=== PATIENT | male | born 1960 | race Two or more races ===

== ENCOUNTER 2018-07-16 12:06 | Emergency (ER) | payer SELFPAY ==
[~2018-07-16] VITALS: Ht 175.3 cm; Wt 102.1 kg
[2018-07-16] MEDS ORDERED: UNOBMED (12:12)
[2018-07-16 12:31] VITALS: BP 148/82
[2018-07-16] MEDS ORDERED: Meclizine 25mg tab ORAL STA (12:49)
[2018-07-16 13:33] LABS: ANION GAP 10 mmol/L (5-15); APPEARANCE,URINE CLEAR; BILIRUBIN, URINE NEGATIVE (NEGATIVE); BLOOD UREA NITROGEN 14 mg/dL (7-18); CALCIUM 9.2 MG/DL (8.5-10.1); CARBON DIOXIDE 27 MMOL/L (21-32); CHLORIDE 101 MMOL/L (98-107); COLOR,URINE BROWN; CREATININE 0.7 MG/DL (0.55-1.30); GLUCOSE, URINE (UA) NEGATIVE (NEGATIVE); KETONES,URINE NEGATIVE (NEGATIVE); LEUKOCYTE ESTERASE ,URINE 1+ (NEGATIVE); NITRITE,URINE NEGATIVE (NEGATIVE); PH,URINE 6 (4.5-8.0); POTASSIUM 4.4 MMOL/L (3.5-5.1); PROTEIN,URINE NEGATIVE (NEGATIVE); SODIUM 137 MMOL/L (136-145); UROBILINOGEN,URINE 4 MG/DL (0.0-1.0)
[2018-07-16 13:36] LABS: BASOPHILS % (AUTO) 0.9 % (0.0-2.0); EOSINOPHILS % (AUTO) 2.5 % (0.0-3.0); HEMATOCRIT 45.7 % (42.0-52.0); HEMOGLOBIN 15.7 G/DL (14.2-18.0); LYMPHOCYTES % (AUTO) 24.9 % (20.0-45.0); MEAN CORPUSCULAR VOLUME 86 FL (80-99); MONOCYTES % (AUTO) 7.5 % (1.0-10.0); NEUTROPHILS % (AUTO) 64.2 % (45.0-75.0); PLATELET COUNT 196 K/UL (150-450); RED BLOOD COUNT 5.34 M/UL (4.70-6.10); RED CELL DISTRIBUTION WIDTH 11.2 % (11.6-14.8); WHITE BLOOD COUNT 8.6 K/UL (4.8-10.8)
[2018-07-16 13:44] LABS: ALANINE AMINOTRANSFERASE 31 U/L (12-78); ALBUMIN 3.7 G/DL (3.4-5.0); ALBUMIN/GLOBULIN RATIO 0.8 (1.0-2.7); ALKALINE PHOSPHATASE 101 U/L (46-116); ASPARTATE AMINO TRANSFERASE 22 U/L (15-37); CREATINE KINASE 109 U/L (26-308)
--- NOTE | 2018-07-16 14:18 | Diagnostic Imaging Report ---
Indication: Cough Technique: One view of the chest Comparison: none Findings: The heart is borderline enlarged. The lungs and pleural spaces are clear. Impression: Cardiomegaly. No acute process
[2018-07-16 14:36] VITALS: BP_SYST 125; BP_SYST 139; BP_SYST 144; BP_DIAS 76; BP_DIAS 87
--- NOTE | 2018-07-16 14:41 | Emergency Room Report ---
History of Present Illness General Chief Complaint: Dizziness Source: Patient Present Illness HPI Patient presents with 2 days of vertigo mainly when he sits up. It began after coughing fit. He felt pressure in his ears at that time and had a change in his hearing. Seems more on the left-hand side. He denies any fevers or chills. He feels the world spinning and gets nauseated. He stopped smoking at that time. The cough is better. He denies any chest pain or palpitations. The episodes last a few minutes and then get better. He does not feel dehydrated. He doesn't feel like is is about to pass out. There is no headache. The patient also complains about left calf pain that happens when he walks 1 block. This has been happening for at least a month. He's not talked about this with his doctor. 5 months ago he was waking up gasping for air. This hasn't happened recently. No fevers, chills, sore throat, abdominal pain, dysuria, change in bowels, joint pain. No recent head trauma. Allergies: Coded Allergies: No Known Allergies (Unverified , 07/16/18) Patient History Past Medical History: see triage record Social History: Reports: smoking Social History Narrative Reviewed Nursing Documentation: PMH: Agreed; PSxH: Agreed Nursing Documentation-PMH Past Medical History: No History, Except For Hx Hypertension: Yes Review of Systems All Other Systems: negative except mentioned in HPI Physical Exam Vital Signs Date Time Temp Pulse Resp B/P (MAP) Pulse Ox O2 Delivery O2 Flow Rate FiO2 07/16/18 12:09 98.2 82 18 132/86 95 Room Air 07/16/18 12:31 96 Sp02 EP Interpretation: reviewed, normal General Appearance: well appearing, no apparent distress, GCS 15 Head: normocephalic, atraumatic Eyes: bilateral eye normal inspection, bilateral eye PERRL, bilateral eye EOMI ENT: normal pharynx, TMs + canals normal, moist mucus membranes Neck: supple Respiratory: lungs clear, normal breath sounds Cardiovascular #1: regular rate, rhythm, no edema Cardiovascular #2: 2+ radial (R), 2+ dorsalis pedis (L) Gastrointestinal: normal inspection, normal bowel sounds, non tender, no mass, non-distended Musculoskeletal: back normal, gait/station normal, normal range of motion, no calf tenderness, Ida's Sign negative Neurologic: alert, oriented x3, edge bander hand III-XII nml as tested, motor strength/tone normal, DTRs symmetric, sensory intact, cerebellar normal, normal gait, speech normal Psychiatric: mood/affect normal Skin: normal inspection, warm/dry Medical Decision Making Diagnostic Impression: Primary Impression: Vertigo Additional Impression: Claudication ER Course Patient presents with dizziness that started 2 days ago after coughing fit with change in his hearing. Differential includes labyrinthitis, otitis media, orthostatic hypotension amongst others. His neurologic exam is normal at this time and CT of the head is not indicated. Evaluation with EKG, chest x-ray and labs. Patient will be treated with Zofran and Antivert. In addition he has calf pain that is re-created by walking 1 block. Differential includes claudication, calf strain, electrolyte imbalance amongst others. Not orthostatic EKG without injury. Chest x-ray normal. Labs unremarkable. Improved with treatment. Discussed findings with patient. Discussed the need for evaluation of his circulation of his left leg. Also discussed smoking cessation. In addition discussed treatment plan. Patient improved and stable for outpatient observation and treatment. Laboratory Tests Test 07/16/18 13:00 07/16/18 13:05 White Blood Count 8.6 K/UL (4.8-10.8) Red Blood Count 5.34 M/UL (4.70-6.10) Hemoglobin 15.7 G/DL (14.2-18.0) Hematocrit 45.7 % (42.0-52.0) Mean Corpuscular Volume 86 FL (80-99) Mean Corpuscular Hemoglobin 29.4 PG (27.0-31.0) Mean Corpuscular Hemoglobin Concent 34.4 G/DL (32.0-36.0) Red Cell Distribution Width 11.2 % (11.6-14.8) L Platelet Count 196 K/UL (150-450) Mean Platelet Volume 7.2 FL (6.5-10.1) Neutrophils (%) (Auto) 64.2 % (45.0-75.0) Lymphocytes (%) (Auto) 24.9 % (20.0-45.0) Monocytes (%) (Auto) 7.5 % (1.0-10.0) Eosinophils (%) (Auto) 2.5 % (0.0-3.0) Basophils (%) (Auto) 0.9 % (0.0-2.0) Erythrocyte Sedimentation Rate Pending Prothrombin Time 10.2 SEC (9.30-11.50) Prothrombin Time INR 1.0 (0.9-1.1) PTT 29 SEC (23-33) Urine Color Brown Urine Appearance Clear Urine pH 6 (4.5-8.0) Urine Specific [place] 1.020 (1.005-1.035) Urine Protein Negative (NEGATIVE) Urine Glucose (UA) Negative (NEGATIVE) Urine Ketones Negative (NEGATIVE) Urine Blood 1+ (NEGATIVE) H Urine Nitrite Negative (NEGATIVE) Urine Bilirubin Negative (NEGATIVE) Urine Urobilinogen 4 MG/DL (0.0-1.0) H Urine Leukocyte Esterase 1+ (NEGATIVE) H Urine RBC 5-10 /HPF (0 - 0) H Urine WBC 0-2 /HPF (0 - 0) Urine Squamous Epithelial Cells Occasional /LPF Urine Bacteria Few /HPF (NONE) Urine Mucus Moderate /LPF (NONE/OCC) H Sodium Level 137 MMOL/L (136-145) Potassium Level 4.4 MMOL/L (3.5-5.1) Chloride Level 101 MMOL/L (98-107) Carbon Dioxide Level 27 MMOL/L (21-32) Anion Gap 10 mmol/L (5-15) Blood Urea Nitrogen 14 mg/dL (7-18) Creatinine 0.7 MG/DL (0.55-1.30) Estimate Glomerular Filtration Rate > 60 mL/min (>60) Glucose Level 98 MG/DL (74-106) Calcium Level 9.2 MG/DL (8.5-10.1) Magnesium Level 2.0 MG/DL (1.8-2.4) Total Bilirubin 1.0 MG/DL (0.2-1.0) Aspartate Amino Transferase (AST) 22 U/L (15-37) Alanine Aminotransferase (ALT) 31 U/L (12-78) Alkaline Phosphatase 101 U/L (46-116) Total Creatine Kinase 109 U/L (26-308) Troponin I 0.017 ng/mL (0.000-0.056) Pro-B-Type Natriuretic Peptide 25 pg/mL (0-125) Total Protein 8.1 G/DL (6.4-8.2) Albumin 3.7 G/DL (3.4-5.0) Globulin 4.4 g/dL Albumin/Globulin Ratio 0.8 (1.0-2.7) L Thyroid Stimulating Hormone (TSH) 1.705 uiU/mL (0.358-3.740) Urine Opiates Screen Negative (NEGATIVE) Urine Barbiturates Screen Negative (NEGATIVE) Phencyclidine (PCP) Screen Negative (NEGATIVE) Urine Amphetamines Screen Negative (NEGATIVE) Urine Benzodiazepines Screen Negative (NEGATIVE) Urine Cocaine Screen Negative (NEGATIVE) Urine Marijuana (THC) Screen Negative (NEGATIVE) EKG Diagnostic Results Rate: normal Rhythm: NSR ST Segments: no acute changes Rhythm Strip Diag. Results EP Interpretation: yes Rhythm: NSR, no PVC's, no ectopy Chest X-Ray Diagnostic Results Chest X-Ray Diagnostic Results : Chest X-Ray Ordered: Yes # of Views/Limited/Complete: 1 View Indication: Other EP Interpretation: Yes Interpretation: no consolidation, no effusion, no pneumothorax Impression: No acute disease Electronically Signed by: Electronically signed by Alvarez Bhatia MD Last Vital Signs Date Time Temp Pulse Resp B/P (MAP) Pulse Ox O2 Delivery O2 Flow Rate FiO2 07/16/18 15:13 98.2 72 17 116/65 100 Room Air 96 Status: improved Disposition: HOME, SELF-CARE Condition: Improved Scripts Meclizine Hcl* (MECLIZINE*) 25 Mg Tablet 25 MG ORAL THREE TIMES A DAY PRN for for dizziness, #20 TAB Prov: Alvarez Bhatia MD 07/16/18 Ondansetron Odt* (ZOFRAN ODT*) 4 Mg Tab.rapdis 4 MG BC EVERY 8 HOURS, #6 TAB 1 Refill Prov: Alvarez Bhatia MD 07/16/18 Aspirin* (ASPIR 81*) 81 Mg Tablet.dr 81 MG ORAL DAILY, #30 TAB Prov: Alvarez Bhatia MD 07/16/18 Referrals: NOT CHOSEN IPA/,REFERRING (PCP) Alvarez Bhatia MD Jul 16, 2018 14:41
[2018-07-16] MEDS ORDERED: ASPIR 8181 MG ORAL (14:45)
[2018-07-16] MEDS ORDERED: ONDANSETRON ODT4 MG BC (14:45)
[2018-07-16] MEDS ORDERED: MECLIZINE HCL25 MG ORAL (14:45)
[2018-07-16 15:13] VITALS: BP 116/65
--- NOTE | 2018-07-20 15:53 | Cardiology Report ---
APPROVED REPORT EKG Measurement Heart [id number] Normal sinus rhythm Normal ECG
== END 2018-07-16 15:14 | disposition home or self-care (01) ==
LOC: EMR 13:38
DX: R42 Dizziness and giddiness (principal); I73.9 Peripheral vascular disease, unspecified; R11.0 Nausea; F17.200 Nicotine dependence, unspecified, uncomplicated; M79.662 Pain in left lower leg; I10 Essential (primary) hypertension; I51.7 Cardiomegaly
CPT/HCPCS: 36415; 71045; 80053; 80307; 81003; 82550; 83735; 83880; 84443; 84484; 85025; 85610; 85651; 85730; 93005; 99283